=== PATIENT | male | born 1960 | race Caucasian/White ===

== ENCOUNTER 2023-08-10 07:14 | Emergency (ER) | payer OTHER ==
[2023-08-10 07:28] VITALS: BMI 23.0
[2023-08-10] MEDS ORDERED: HEPARIN NA (PORCINE) 5,000 UNITS/ML 1ML VIAL IVPUSH ONE (08:22)
[2023-08-10] MEDS ORDERED: TICAGRELOR 90 MG TABLET PO SCH ×2 (08:33→10:00)
[2023-08-10] MEDS ORDERED: HEPARIN NA (PORCINE) 5,000 UNITS/ML 1ML VIAL ONE (08:33)
[2023-08-10 08:38] LABS: BASO % 0.5 % (0-2.0); EOS % 0.6 % (0-4.5); HEMOGLOBIN 13.1 GM/dL (11.7-16.9); MCH 29.8 pg (25.7-33.7); MCHC 34.4 g/dl (32.0-35.9); MEAN CELL VOLUME 86.5 fl (80-96); MEAN PLT VOLUME 7.6 fl (7.5-11.1); MONO % 7.4 % (3.8-10.2); NEUT % 65.5 % (42.8-82.8); PLATELET COUNT 253 10^3/uL (134-434); RDW 14.4 % (11.9-15.9); WHITE BLOOD COUNT 7.5 K/mm3 (4.0-10.0)
[2023-08-10 08:45] LABS: PROTHROMBIN TIME (PATIENT) 11.6 SEC (9.7-13.0)
[2023-08-10 08:48] LABS: ACTIVATED PTT 34.1 SECONDS (25.2-36.5)
[2023-08-10 08:54] LABS: POTASSIUM 4.2 mmol/L (3.5-5.1)
[2023-08-10 08:55] LABS: CALCIUM 11.2 mg/dL (8.5-10.1)
[2023-08-10 08:56] LABS: ALBUMIN 3.7 g/dl (3.4-5.0); BLOOD UREA NITROGEN 10.4 mg/dL (7-18); MAGNESIUM 2.3 mg/dL (1.8-2.4)
[2023-08-10 08:59] LABS: CREATININE 0.6 mg/dL (0.55-1.3)
[2023-08-10 09:01] LABS: BILIRUBIN,TOTAL 0.3 mg/dL (0.2-1); TOT PROT 7.9 g/dl (6.4-8.2)
[2023-08-10 09:08] VITALS: BP 149/73; PULSE 61; RESP 20; TEMP 98
[2023-08-10] MEDS ORDERED: TICAGRELOR 90 MG TABLET PO ONE (09:30)
== END 2023-08-10 09:34 | disposition short-term general hospital (02) ==
LOC: JER 07:14
PROC: 3E033NZ Introduction of Analgesics, Hypnotics, Sedatives into Peripheral Vein, Percutaneous Approach (ICD-10-PCS; principal; 2023-08-10)
DX: R11.0 Nausea (principal); R10.13 Epigastric pain; R51.9 Headache, unspecified; I21.3 ST elevation (STEMI) myocardial infarction of unspecified site
CPT/HCPCS: 36415; 71045-TC-FY; 80053; 83690; 83735; 84484; 85025; 85610; 85730; 86850; 86900; 86901; 93005; 93010; 99285-25; J1644